=== PATIENT | female | born 1990 | race Caucasian/White ===

== ENCOUNTER 2018-10-31 09:05 | Emergency (ER) | payer OTHER ==
[2018-10-31 09:25] VITALS: BP 118/45
--- NOTE | 2018-10-31 09:51 | UC ---
Upper Extremity HPI - HPI Summary HPI Summary: Per slasher tender: "c/o L upper arm pain for the past 2 days. 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 Denies any trauma or injury to the L arm. Pt indicates pain as being in the bicep area. Equal timber grader strength, able to move L wrist and all fingers." -her Mom and dtr are here but not in the room when I see her -pain started suddenly while she was catering, she believes she was walking casually at the time. she felt sudden sharp pain as 6/10 that caused sudden weakness. no tingling. not change in skin temp -she had been catering and using her arm to carry trays. she has a young daughter that she often carries in her left arm. -jose alberto lives in [facility] and she is here visiting only for a few more days. -she has had ortho issues managaed by both [facility] and [facility] in past - History of Current Complaint Chief Complaint: UCUpperExtremity Stated Complaint: LT ARM COMPLAINT Time Seen by Provider: 10/31/18 09:28 Hx Last Menstrual Period: 10/04/18 Pain Intensity: 8 - Allergies/Home Medications Allergies/Adverse Reactions: Allergies Allergy/AdvReac Type Severity Reaction Status Date / Time No Known Allergies Allergy Verified 10/31/18 09:25 Home Medications: Home Medications Ibuprofen TAB* [Motrin TAB* 800 MG] 800 mg PO Q6H PRN 10/31/18 [History Confirmed 10/31/18] PMH/Surg Hx/FS Hx/Imm Hx Previously Healthy: Yes - Surgical History Surgical History: Yes Surgery Procedure, Year, and Place: T&A 1993, LEFT SHOULDER 2009, RIGHT KNEE 2010 - Family History Known Family History: Positive: Hypertension, Diabetes - Social History Alcohol Use: Occasionally Substance Use Type: None Smoking Status (MU): Never Smoked Tobacco - Immunization History Most Recent Influenza Vaccination: never received Most Recent Tetanus Shot: 2007 Most Recent Pneumonia Vaccination: never received Review of Systems All Other Systems Reviewed And Are Negative: Yes Constitutional: Positive: Negative Skin: Positive: Negative Eyes: Positive: Negative ENT: Positive: Negative Respiratory: Positive: Negative Cardiovascular: Positive: Negative Gastrointestinal: Positive: Negative Genitourinary: Positive: Negative Motor: Positive: Decreased ROM, Weakness Neurovascular: Positive: Negative Musculoskeletal: Positive: Myalgia Neurological: Positive: Negative Psychological: Positive: Negative Is Patient Immunocompromised?: No Physical Exam Appearance: Well-Appearing, No Pain Distress, Well-Nourished - very pleasant Vital Signs: Initial Vital Signs Temp 97.8 F 10/31/18 09:19 Pulse 62 10/31/18 09:19 Resp 14 10/31/18 09:19 BP 118/45 10/31/18 09:19 Pulse Ox 99 10/31/18 09:19 Vital Signs Reviewed: Yes Eye Exam: Normal ENT Exam: Normal Neck exam: Normal Respiratory Exam: Normal Cardiovascular Exam: Normal Musculoskeletal: Positive: Other: - mild swelling of diatl left flexor upper arm compared to left, there is tenderness and firmness in this area as well. no bruising. CR brisk. sensation intact. good ROM w/ fingers. 1/5 strength in flexion d/t pain. Neurological Exam: Normal Psychological Exam: Normal Skin Exam: Normal Upper Extremity Course/Dx - Course Course Of Treatment: -suspect possible bicep head rupture d/t severity of pain, onset. We both think it is in her best interest to be seen at ortho today as she is flying back this week. She is very agreeable to go to ortho after hours/UC in [place] as this is her prefernce. we will not do xrays here as they will be doing them there as well. this will help reduce radiation exposure. she is very pleased with this plan. - Differential Dx/Diagnosis Differential Diagnosis/HQI/PQRI: Strain, Sprain Provider Diagnosis: Pain in right upper arm Discharge - Sign-Out/Discharge Documenting (check all that apply): Patient Departure All imaging exams completed and their final reports reviewed: No Studies - Discharge Plan Condition: Stable Disposition: HOME Patient Education Materials: Tendon Rupture (ED) Referrals: No Primary Care Phys,NOPCP [Primary Care Provider] - Additional Instructions: I am unable to confirm your diagnosis gladys but you may have a bicep tendon rupture due to the nature of your pain and limitations. We discussed being evaluated by orthopedic urgent care setting today in the interest of your short stay locally. I have given you a printout of information in case it is a tendon rupture for your information. I am also giving you the information for the 2 places in [place] you have been seen in the past. -SOS after hours [facility] [address] [place] [address] P: -[facility] [place] [address], [address] [place] [address] - Billing Disposition and Condition Condition: STABLE Disposition: Home
== END 2018-10-31 10:07 | disposition home or self-care (01) ==
LOC: UCCORT 09:05
DX: M79.621 Pain in right upper arm (principal); X50.0XXA Overexertion from strenuous movement or load, initial encounter; Y93.89 Activity, other specified; Y92.9 Unspecified place or not applicable; Y99.0 Civilian activity done for income or pay
CPT/HCPCS: 99211; G0463